=== PATIENT | female | born 2005 | race Caucasian/White ===

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

== ENCOUNTER 2024-05-21 12:54 | Emergency (ER) | payer BC ==
[~2024-05-21] VITALS: Ht 167.6 cm; Wt 81.6 kg
[2024-05-21 13:11] VITALS: BP_SYST 131; PULSE 82; RESP 18; TEMP 97.6; O2SAT 100
== END 2024-05-21 15:10 | disposition left against medical advice (07) ==
LOC: SED 12:54
DX: R42 Dizziness and giddiness (principal); Z53.21 Procedure and treatment not carried out due to patient leaving prior to being seen by health care provider